=== PATIENT | female | born 1975 | race Caucasian/White ===

== ENCOUNTER → 2017-05-12 | Outpatient (CLI) | payer OTHER ==
--- NOTE | ~2017-05-12 | HM ---
Unit #: [id number] #: [id number] Patient: FRANCES ZELAYA [id number] [address] [place], [place] [address] [id number] O MR#: [id number] NAME: FRANCES ZELAYA : 1975 SEX: F STUDY DATE/TIME: 05/12/2017 UNIT: [facility] ROOM: STUDY DESCRIPTION: Attending Physician: Aleksandr Alatorre M.D. Referring Physician: Aleksandr Alatorre M.D. Primary Care Physician: Aleksandr Alatorre M.D. CARDIOLOGY REPORT EXAM 24-hour Holter monitor. DATE APPLIED 05/12/2017 DATE SCANNED 05/17/2017 [place] [facility] [place] ORDERED BY Dr. Aleksandr Alatorre. REASON FOR STUDY Chest pain. FINDINGS 1. Basic rhythm is normal sinus rhythm. Total beats 129,466. Average heart rate 90 per minute. Heart rate varies from 59 per minute at 5:30 a.m. to 133 per minute at 10:47 a.m. 2. Thirty one isolated PVCs noted. 3. There are no PACs noted. 4. There is no high-grade AV blocks noted. 5. No diary with the symptoms available. Dictated by... Lluvia Duran/anil TD: 05/18/2017 12:04 JOB #: [id number] Unit #: [id number] #: [id number] Patient: FRANCES ZELAYA CARDIOLOGY REPORT Page 1 of 1 X Ancelmo Soto MD HOLTER MONITOR REPORT
== END | disposition home or self-care (01) ==
LOC: CECH 09:42
DX: R07.9 Chest pain, unspecified (principal)
CPT/HCPCS: 93225; 93226; 93351; J1250